=== PATIENT | female | born 1975 | race Two or more races ===

== ENCOUNTER 2024-05-21 19:16 | Observation (INO) | payer OTHER ==
[2024-05-21 19:26] VITALS: RESP 18; TEMP 97.9; BMI 21.2
[2024-05-21 21:25] LABS: BASO % 0.8 % (0-2.0); EOS % 3.2 % (0-4.5); HEMATOCRIT 28.3 % (32.4-45.2); HEMOGLOBIN 8.7 GM/dL (10.7-15.3); LYMPH % 33.5 % (8-40); MCH 23.9 pg (25.7-33.7); MCHC 30.9 g/dl (32.0-36.0); MEAN CELL VOLUME 77.4 fl (80-96); MEAN PLT VOLUME 7.2 fl (7.5-11.1); MONO % 7.7 % (3.8-10.2); NEUT % 54.8 % (42.8-82.8); PLATELET COUNT 299 10^3/uL (134-434); RBC 3.65 M/mm3 (3.60-5.2); RDW 15.7 % (11.6-15.6); WHITE BLOOD COUNT 4.1 K/mm3 (4.0-10.0)
[2024-05-21 21:32] LABS: INR 0.94 (0.83-1.09); PROTHROMBIN TIME (PATIENT) 10.6 SEC (9.7-13.0)
[2024-05-21 21:43] LABS: POTASSIUM 3.7 mmol/L (3.5-5.1)
[2024-05-21 21:45] LABS: CALCIUM 8.6 mg/dL (8.5-10.1)
[2024-05-21 21:46] LABS: ALBUMIN 4.1 g/dl (3.4-5.0); BLOOD UREA NITROGEN 17.5 mg/dL (7-18)
[2024-05-21 21:49] LABS: CREATININE 0.6 mg/dL (0.55-1.3)
[2024-05-21 21:50] LABS: BILIRUBIN,TOTAL 0.3 mg/dL (0.2-1); TOT PROT 6.9 g/dl (6.4-8.2)
[2024-05-22 00:57] VITALS: BP 116/78; PULSE 64
== END 2024-05-22 01:57 | disposition home or self-care (01) ==
LOC: JER 19:16 → JERBED 23:11
PROVIDERS: ADMIT Internal Medicine; ATTEND Internal Medicine
DX: D50.9 Iron deficiency anemia, unspecified (principal); F41.0 Panic disorder [episodic paroxysmal anxiety]; R94.31 Abnormal electrocardiogram [ECG] [EKG]; N95.8 Other specified menopausal and perimenopausal disorders; Z87.891 Personal history of nicotine dependence
CPT/HCPCS: 36415; 71046-TC-FY; 80053; 84484; 84703; 85025; 85610; 85730; 93005; 93010; 99285-25; G0378